=== PATIENT | female | born 1985 | race Caucasian/White ===

== ENCOUNTER → 2019-03-09 | Outpatient (CLI) | payer OTHER, SELFPAY ==
[2019-03-17 16:45] LABS: HPV Reflexed? NOT INDICATED
== END | disposition home or self-care (01) ==
PROVIDERS: Family Provider Family Medicine; PCP Family Medicine; Referring Provider Obstetrics & Gynecology; Visit Provider Obstetrics & Gynecology
DX: Z12.4 Encounter for screening for malignant neoplasm of cervix (principal)
CPT/HCPCS: 88175; G0145

== ENCOUNTER → 2022-02-26 | Outpatient (CLI) | payer OTHER, SELFPAY ==
[2022-03-03 19:27] LABS: HPV Reflexed? NOT INDICATED
== END | disposition home or self-care (01) ==
LOC: LABSPEC 10:14
PROVIDERS: PCP Family Medicine; Visit Provider Obstetrics & Gynecology
DX: Z12.4 Encounter for screening for malignant neoplasm of cervix (principal)
CPT/HCPCS: 88175; G0145

== ENCOUNTER → 2022-12-01 | Outpatient (CLI) | payer OTHER, SELFPAY ==
--- NOTE | 2022-12-01 14:38 | US_ITS ---
STUDY: ULTRASOUND BREAST - LEFT REASON FOR EXAM: Female, 37 years old. Painful swollen breast TECHNIQUE: Axial and longitudinal images of the LEFT breast were performed with a high resolution ultrasound transducer. # OF IMAGES: 29 COMPARISON: None. FINDINGS: LEFT Breast: Sonographic evaluation of the retroareolar region of the left breast shows a complex poorly defined mass measuring 3.3 x 3.2 x 1.8 cm. It is at 5:00 adjacent to the nipple. There is hyperemia around its periphery consistent with an inflammatory process perhaps a poorly defined developing abscess. There is no sonographic evidence of a suspicious shadowing solid lesion, or clustered calcifications [employer] also notes skin thickening and peeling skin. US/Breast Limited Unilateral IMPRESSION: Likely developing abscess adjacent to the nipple with skin thickening and hyperemia. Short-term follow-up sonography is recommended to assure resolution after therapy. No suspicious noncalcified shadowing mass or nodule. ASSESSMENT CATEGORY: BIRADS Category 3: Probably Benign - Short-Interval Follow-up Suggested. A letter regarding these results will be sent to the patient by the facility within 30 days. Electronically Signed: Tristan Peacock MD at 15:50 EDT ,
--- NOTE | 2022-12-01 14:38 | BI_ITS ---
MAMMOGRAPHY - BILATERAL DIAGNOSTIC REASON FOR EXAM: Female, 37 years old. Left breast lump PERTINENT HISTORY: Non-contributory. TECHNIQUE: Digital examination. Mediolateral oblique (MLO) and craniocaudad (CC) views of both breasts were obtained, along with 3-D tomosynthesis. CAD: CAD was performed on this study. COMPARISON: None. Baseline examination. FINDINGS: Breast Composition: The breasts are heterogeneously dense, which may obscure small masses. The right breast is free of suspicious abnormality. The left breast however shows skin thickening, and a retroareolar mass that needs further evaluation with ultrasound. BI/DIAG MAMM W/CAD, BILAT IMPRESSION: Further ultrasonographic evaluation recommended, as described above. Recall Side: Left Breast ASSESSMENT CATEGORY: BIRADS Category 0: Incomplete. Need additional imaging evaluation. A letter regarding these results will be sent to the patient by the facility within 30 days. FOLLOW UP RECOMMENDATION: Ultrasound Recommended. (I) Approximately 10% of breast cancers are not detected by mammography. A normal mammogram should not delay biopsy of a clinically suspicious abnormality. Electronically Signed: Tristan Peacock MD at 15:24 EDT ,
== END | disposition home or self-care (01) ==
PROVIDERS: PCP Family Medicine; Visit Provider Obstetrics & Gynecology
DX: N63.0 Unspecified lump in unspecified breast (principal)
CPT/HCPCS: 76642; 77062; 77066; G0279

== ENCOUNTER → 2022-12-04 | Outpatient (CLI) | payer OTHER, SELFPAY | END | disposition home or self-care (01) | LOC: LABSPEC 09:08 | PROVIDERS: PCP Family Medicine; Visit Provider Surgery | DX: N61.1 Abscess of the breast and nipple (principal) | CPT/HCPCS: 87070; 87075; 87077; 87186; 87205 ==

== ENCOUNTER → 2024-03-25 | Outpatient (CLI) | payer OTHER, SELFPAY ==
--- NOTE | 2024-03-25 09:57 | BI_ITS ---
MAMMOGRAPHY - BILATERAL SCREENING 3-D TOMOSYNTHESIS REASON FOR EXAM: Female, 38 years old. screening mammogram PERTINENT HISTORY: No significant family history. TECHNIQUE: 2-D mammograms and 3-D Tomosynthesis of the breast (s) were performed. CAD was performed. COMPARISON: None. FINDINGS: The breast composition is heterogeneously dense that can obscure small breast masses. Scattered benign calcifications are seen. No dense spiculated masses or suspicious microcalcifications are identified. No architectural distortion is identified. There is no skin thickening or retraction. There has been no significant change since the prior study. BI/SCRN MAMM (CAD)W/ARI BILAT IMPRESSION: No mammographic signs of malignancy. Routine yearly mammograms recommended. ASSESSMENT CATEGORY: BIRADS Category 1: Negative. A letter regarding these results will be sent to the patient by the facility within 30 days. FOLLOW UP RECOMMENDATION: Yearly follow up mammogram recommended. (A) Approximately 10% of breast cancers are not detected by mammography. A normal mammogram should not delay biopsy of a clinically suspicious abnormality. Electronically Signed: Kirk Gill MD at 15:16 EDT ,
== END | disposition home or self-care (01) ==
LOC: OPBI 09:56
PROVIDERS: PCP Family Medicine; Referring Provider Obstetrics & Gynecology; Visit Provider Obstetrics & Gynecology
DX: Z12.31 Encounter for screening mammogram for malignant neoplasm of breast (principal)
CPT/HCPCS: 77063; 77067

== ENCOUNTER → 2025-04-03 | Outpatient (CLI) | payer OTHER, SELFPAY ==
--- NOTE | 2025-04-03 14:45 | BI_ITS ---
EXAM: SCRN MAMM (CAD)W/ARI BILAT DATE: 04/03/2025 CLINICAL HISTORY: F, Age 39 y/o , SCREEN FOR BREAST CANCER No family history. TECHNIQUE: SCRN MAMM (CAD)W/ARI BILAT COMPARISON: Prior exam(s) dated March 25, 2024.. FINDINGS: TISSUE DENSITY: The breasts are heterogeneously dense, which may obscure small masses. Bilateral Breast Mammographic Findings: No significant masses, calcifications or other abnormalities are identified. No suspicious masses, areas of developing architectural distortion, or suspicious calcifications. There has been no significant interval change. BI/SCRN MAMM (CAD)W/ARI BILAT IMPRESSION: Stable examination. OVERALL FINAL ASSESSMENT BI-RADS 1: NEGATIVE. RECOMMENDATION: Routine annual follow-up in 1 Year A letter with findings and recommendations will be mailed to the patient. Reading Location: [place] [id number]
--- OUTSIDE RECORDS SUMMARY | 2025-04-03 22:45 | XMS RPT_ITS | CCD ---
Author Organization [facility] Inform ion Partnership [facility] Care Team Providers Care Ranch Manager Name Role Phone Baltazar Galicia Unavailable Unavailable Sandro Toledo Unavailable Unavailable [place] RN, Cari Car Unavailable Unavailable Baltazar Galicia Unavailable Unavailable Dr. Andres Neil Primary Care Provider [phone] Dr. Arnav Mir Attending Provider [phone] Dr. Slim Payne Referring Provider [phone] Andres Neil Referring Provider Nurse, Surgery Attending Provider Unavailable Cheyenne Combs Attending Unavailable Andres Neil Referring Unavailable Andres Neil Primary Care Unavailable Andres Neil Primary Care Unavailable Cheyenne Combs Referring Unavailable Cheyenne Combs Attending Unavailable Medications Current Medications Medication Drug Class(es) Dates Sig (Normalized) Sig (Original) amoxicillin 875 mg / clavulanate 125 mg oral tablet (2 sources) Penicillin-class Antibacterial Start: 12-04-2022 take 1 tablet by mouth twice daily Amoxicillin-Pot Clavulanate Active 1 TABLET PO TWICE A DAY December 04, 2022 12:00am Multivitamin preparation (3 sources) Start: 04-01-2018 take 1 tablet by mouth once daily Multivitamin Active 1 TABLET PO daily April 01, 2018 4:45pm Start: 04-01-2018 take 1 tablet by adriano once daily Multivitamin Active 1 TABLET PO daily April 01, 2018 12:00am Vitamin B Complex (B Complex 1) tablet (3 sources) Start: 04-01-2018 take 1 tablet by mouth once daily Vitamin B Complex (B Complex 1) tablet Active 1 TABLET PO daily April 01, 2018 4:45pm Start: 04-01-2018 take 1 tablet by mouth once da gerber Vitamin B Complex (B Complex 1) tablet Active 1 TABLET PO daily April 01, 2018 12:00am Completed/Discontinued Medications Medication Drug Class(es) Dates Sig (Normalized) Sig (Original) acetaminophen 325 mg / oxyCODONE hydrochloride 5 mg oral tablet (3 sources) Opioid Agonist Start: 01-05-2015 End: 04-01-2018 take 1 tablet by mouth every four hours as needed Oxycodone-Acetamino phen Discontinued 1 - 2 TABLET PO EVERY 4 HOURS NEEDED 30 January 05, 2015 12:00am April 01, 2018 4:44pm ferrous gluconate (3 sources) Start: 01-05-2015 End: 04-01-2018 take 1 tablet by mouth once daily Ferrous Gluconate Discontinued 1 TABLET PO DAILY January 05, 2015 3:04pm April 01, 2018 4:45pm Start: 01-05-2015 End: 04-01-2018 take 1 tablet by mouth once daily Ferrous Gluconate Discontinued 1 TABLET PO DAILY January 05, 2015 12:00am April 01, 2018 4:45pm ibuprofen 800 mg oral tablet (3 sources) Nonsteroidal Anti-inflammatory Drug Start: 01-05-2015 End: 04-01-2018 take 800 mg by mouth three times daily as needed Ibuprofen Discontinued 800 MG PO 3 TIMES DAILY NEEDED 60 January 05, 2015 12:00am April 01, 2018 4:44pm MULTIPLE VITAMIN (2 sources) Start: 04-13-2017 take 1 tablet by mouth once daily MULTIVITAMINS TABS One tablet by mouth daily MULTIPLE VITAMIN Andres Lee MD Vit,Oyla11-Zzbf -Folic (3 sources) Start: 01-05-2015 End: 04-01-2018 take 1 tablet by mouth once daily Vit,Pugf40-Eumy-Vjr ic Discontinued 1 TABLET PO DAILY January 05, 2015 7:45am April 01, 2018 4:45pm Start: 01-05-2015 End: 04-01-2018 take 1 tablet by mouth once daily Vit,Lgkf11-Ofua-Rssdp Discontinued 1 TABLET PO DAILY January 05, 2015 12:00am April 01, 2018 4:45pm B COMPLEX VITAMINS (2 sources) Start: 04-13-2017 take 1 tablet by mouth once daily VITAMIN B COMPLEX TABS One tablet by mouth daily B COMPLEX VITAMINS [id number] Andres Lee MD Problems Active Problems Problem Classification Problem Date Documented Da te Episodic/Chronic Cardiac dysrhythmias (13 sources) Bradycardia, unspecified; Translations: [Conduction disorder of the heart] Onset: 12-27-2015 04-09-2017 Chronic Cardiac dysrhythmias (3 sources) Bradycardia; Translations: [Bradycardia, unspecified] 04-01-2018 Episodic Conduction disorders (1 source) Conduction disorder of the heart; Translations: [Cardiac arrhythmia, unspecified] Onset: 12-27-2015 12-27-2015 Chronic Nonmalignant breast conditions (5 sources) Abscess of breast; Translations: [Abscess of the breast and nipple] 12-04-2022 Episodic Nonspecific chest pain (6 sources) Chest pain; Translations: [Chest pain, unspecified] Onset: 12-27-2015 12-27-2015 Episodic Other screening for suspected conditions (not mental disorders or infectious disease) (1 source) Encounter for screening mammogram for malignant neoplasm of breast; Translations: [Encounter for screening mammogram for malignant neoplasm of breast] Onset: 03-31-2025 Episodic Past or Other Problems Problem Classification Problem Date Documented Date Episodic/Chronic Other circulatory disease (4 sources) Electrocardiogram abnormal; Translations: [Abnormal electrocardiogram [ECG] [EKG]] Onset: 12-27-2015 12-27-2015 Episodic Results Test Name Value Interpretation Reference Range Facility Anaerobic cultureOrdered By: Dr. Mir on 12-09-2022 Bacteria identified Anaer cx Nom (Unsp spec) No anaerobic bacteria isolated. [facility] Bacteria identified Cx Nom ( Wound)Ordered By: Dr. Mir on 12-06-2022 Wound Culture Staphylococcus aureus [facility] Gram stain for investigation of transfusion reactionOrdered By: Dr. Mir on 12-04-2022 Microscopic observation Gram stain Nom (Unsp spec) [facility] CNOVon 11-14-2018 CNOV Office Visit ([facility]) ---- SARAH DINH ([id number]) 1985 F Date Time Provider Department 11/14/18 10:15 AM CAITLYN BIRMINGHAM (FERMIN) [facility] During your visit today, we recorded the following information about you: Temperature Pulse Respiration Blood pressure 99.7 degrees 93/minute 14/minute 110/80 Weight 56.7 kg Caitlyn Birmingham APRN.CNP 11/14/2018 10:22 AM Signed Subjective The history is provided by the patient. No handbag stitcher was used. LORENZO Dinh is a 32 year old female who presents today for CC of cough, fever, and sinus pressure. This started 5 days ago. She can hear wheezing at night. She does not have asthma, but has used an inhaler in the past with symptoms like this and it has helped. She has tried OTC cough and cold medications tylenol and ibuprofen with slight relief. 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 I have confirmed and edited as necessary, the [facility] Review of Systems Constitutional: Positive for fever. Negative for chills. HENT: Positive for congestion and sinus pain. Negative for ear pain and sore throat. Respiratory: Positive for cough. Musculoskeletal: Positive for myalgias. Neurological: Positive for headaches (sinus). Objective Physical Exam Constitutional: She is well-developed, well-nourished, and in no distress. HENT: Head: Normocephalic and atraumatic. Right Ear: Tympanic membrane, external ear and ear canal normal. Left Ear: Tympanic membrane and ear canal normal. Nose: Mucosal edema and rhinorrhea present. Right sinus exhibits maxillary sinus tenderness and frontal sinus tenderness. Left sinus exhibits maxillary sinus tenderness and frontal sinus tenderness. Mouth/Throat: Uvula is midline and mucous membranes are normal. Posterior oropharyngeal erythema (mild) present. Thick Clear Post Nasal Drainage Pulmonary/Chest: Breath sounds normal. She has no decreased breath sounds. She has no wheezes. She has no rhonchi. She has no rales. Thin Clear Post Nasal Drainage Lymphadenopathy: Head (right side): No submental, no submandibular and no tonsillar adenopathy present. Head (left side): No submental, no submandibular and no tonsillar adenopathy present. She has no cervical adenopathy. Neurological: She is alert. Skin: Skin is warm and dry. Psychiatric: Affect normal. Nursing note and vitals reviewed. ASSESSMENT/PLAN: 1. Flu-like symptoms - ICD9: 780.99, ICD10: R68.89 (primary diagnosis) Rest, increase water intake Motrin or Tylenol as needed for fever or pain. Salt water gargles, chloraseptic spray or lozenges as needed for sore throat. Warm beverages, honey. Nasal saline spray as needed Cool mist humidifier at night Flonase or Nasonex 1 spray each nostril two times a day. Tylenol (generic acetaminophen) 500 mg-2 tabs every 8 hrs. as needed for fever and aches Ibuprofen 600 mg (3-200mg tablets) every 6 hours DO NOT take any other OTC cough or cold medication while taking the prescription Bromfed DM. It is ok to take an OTC pain reliever/fever pleat patternmaker though such as advil or tylenol as needed. 2. Fever, unspecified fever cause - ICD9: 780.60, ICD10: R50.9 Tylenol and ibuprofen as needed Diagnosis and treatment plan were discussed and questions were answered to the patient's satisfaction. Pt acknowledged understanding of concepts and follow up plan. Specific signs and symptoms that would indicate the need for higher level of care were discussed in detail warranting prompt ER evaluation. Caitlyn Birmingham APRN.FERMIN Birmingham APRN.FERMIN 11/14/2018 10:18 AM Signed ASSESSMENT/PLAN: 1. Flu-like symptoms - ICD9: 780.99, ICD10: R68.89 (primary diagnosis) Rest, increase water intake Motrin or Tylenol as needed for fever or pain. Salt water gargles, chloraseptic spray or lozenges as needed for sore throat. Warm beverages, honey. Nasal saline spray as needed Cool mist humidifier at night Flonase or Nasonex 1 spray each nostril two times a day. Tylenol (generic acetaminophen) 500 mg-2 tabs every 8 hrs. as needed for fever and aches Ibuprofen 600 mg (3-200mg tablets) every 6 hours DO NOT take any other OTC cough or cold medication while taking the prescription Bromfed DM. It is ok to take an OTC pain reliever/fever pleat patternmaker though such as advil or tylenol as needed. 2. Fever, unspecified fever cause - ICD9: 780.60, ICD10: R50.9 Tylenol and ibuprofen as needed Referring Provider: SELF [200] Allergies As of Date: 11/14/2018 (No Known Allergies) Date Reviewed: 11/14/2018 Reviewed by: [facility]) [place] - Fully Assessed Reason for Visit: Cough [28] Fever [47] Sinus Problem [99] Primary Visit Diagnosis:Flu-like symptoms [R68.89] Other Visit Diagnosis:Fever, unspecified fever cause [R50.9] Order(s):albuterol HFA (PROAIR HFA) 90 mcg/actuation inhalerInhale 2 Puffs as instructed every 4 hours as needed.Disp: 1 InhalerRfl: 0 Brompheniramine-Pse udoeph-DM (BROMFED DM) 2-30-10 mg/5 mL syrupTake 5-10 ml po q6h prnDisp: 120 mLRfl: 0 Prescriptions as of 11/14/2018 Sig: ALBUTEROL SULFATE HFA 90 MCG/* Inhale 2 Puffs as instructed * BROMPHENIRAMINE-PSE UDOEPHEDRI* Take 5-10 ml po q6h prn Problem List As Of Date: 11/14/2018 (None) Other instructions from your clinician: ASSESSMENT/PLAN: 1. Flu-like symptoms - ICD9: 780.99, ICD10: R68.89 (primary diagnosis) Rest, increase water intake Motrin or Tylenol as needed for fever or pain. Salt water gargles, chloraseptic spray or lozenges as needed for sore throat. Warm beverages, honey. Nasal saline spray as needed Cool mist humidifier at night Flonase or Nasonex 1 spray each nostril two times a day. Tylenol (generic acetaminophen) 500 mg-2 tabs every 8 hrs. as needed for fever and aches Ibuprofen 600 mg (3-200mg tablets) every 6 hours DO NOT take any other OTC cough or cold medication while taking the prescription Bromfed DM. It is ok to take an OTC pain reliever/fever pleat patternmaker though such as advil or tylenol as needed. 2. Fever, unspecified fever cause - ICD9: 780.60, ICD10: R50.9 Tylenol and ibuprofen as needed Prescriptions ordered this encounter Disp Refills Start End ALBUTEROL SULFATE HFA 90 MCG/ACTUATI* 1 In* 0 11/14/2018 Route: INHALATION Sig: Inhale 2 Puffs as instructed every 4 hours as needed. BROMPHENIRAMINE-PSE UDOEPHEDRINE-DM 2* 120 * 0 11/14/2018 Sig: Take 5-10 ml po q6h prn Encounter Status:Closed by CAITLYN BIRMINGHAM CNP on 11/14/18 Normal [facility] PROGRESSon 11-14-2018 Protein mass conc HNO ID: [id number] Author: Caitlyn Ornelas) [place] Service: (none) Author Type: Nurse Practitioner Type: Progress Notes Filed: 11/14/2018 10:22 AM Note Text: Subjective The history is provided by the patient. No handbag stitcher was used. LORENZO Dinh is a 32 year old female who presents today for CC of cough, fever, and sinus pressure. This started 5 days ago. She can hear wheezing at night. She does not have asthma, but has used an inhaler in the past with symptoms like this and it has helped. She has tried OTC cough and cold medications tylenol and ibuprofen with slight relief. 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 I have confirmed and edited as necessary, the [facility] Review of Systems Constitutional: Positive for fever. Negative for chills. HENT: Positive for congestion and sinus pain. Negative for ear pain and sore throat. Respiratory: Positive for cough. Musculoskeletal: Positive for myalgias. Neurological: Positive for headaches (sinus). Objective Physical Exam Constitutional: She is well-developed, well-nourished, and in no distress. HENT: Head: Normocephalic and atraumatic. Right Ear: Tympanic membrane, external ear and ear canal normal. Left Ear: Tympanic membrane and ear canal normal. Nose: Mucosal edema and rhinorrhea present. Right sinus exhibits maxillary sinus tenderness and frontal sinus tenderness. Left sinus exhibits maxillary sinus tenderness and frontal sinus tenderness. Mouth/Throat: Uvula is midline and mucous membranes are normal. Posterior oropharyngeal erythema (mild) present. Thick Clear Post Nasal Drainage Pulmonary/Chest: Breath sounds normal. She has no decreased breath sounds. She has no wheezes. She has no rhonchi. She has no rales. Thin Clear Post Nasal Drainage Lymphadenopathy: Head (right side): No submental, no submandibular and no tonsillar adenopathy present. Head (left side): No submental, no submandibular and no tonsillar adenopathy present. She has no cervical adenopathy. Neurological: She is alert. Skin: Skin is warm and dry. Psychiatric: Affect normal. Nursing note and vitals reviewed. ASSESSMENT/PLAN: 1. Flu-like symptoms - ICD9: 780.99, ICD10: R68.89 (primary diagnosis) Rest, increase water intake Motrin or Tylenol as needed for fever or pain. Salt water gargles, chloraseptic spray or lozenges as needed for sore throat. Warm beverages, honey. Nasal saline spray as needed Cool mist humidifier at night Flonase or Nasonex 1 spray each nostril two times a day. Tylenol (generic acetaminophen) 500 mg-2 tabs every 8 hrs. as needed for fever and aches Ibuprofen 600 mg (3-200mg tablets) every 6 hours DO NOT take any other OTC cough or cold medication while taking the prescription Bromfed DM. It is ok to take an OTC pain reliever/fever pleat patternmaker though such as advil or tylenol as needed. 2. Fever, unspecified fever cause - ICD9: 780.60, ICD10: R50.9 Tylenol and ibuprofen as needed Diagnosis and treatment plan were discussed and questions were answered to the patient's satisfaction. Pt acknowledged understanding of concepts and follow up plan. Specific signs and symptoms that would indicate the need for higher level of care were discussed in detail warranting prompt ER evaluation. Caitlyn Birmingham APRN.PLUG PASTER Normal [facility] CNOVon 06-17-2018 CNOV Office Visit ([facility]) ---- NEMESIOAdamSARAH ([id number]) 1985 F Date Time Provider Department 06/17/18 12:00 PM KAR ERNANDEZ [facility] During your visit today, we recorded the following information about you: Temperature Pulse Respiration Blood pressure 98.3 degrees 51/minute 14/minute 120/80 Weight 56.2 kg Kar Ernandez MD 06/17/2018 12:14 PM Signed Patient presents with: Eye Problem: x3 day HPI: Feeling left eye redness and discharge for 3 days. Positive symptoms: contact lens use, rhinorrhea, Negative symptoms: Cough, Sorethroat, Fever, eye pain, vision change beyond expected without contact lens OTC: warm compress MEDICATIONS: No current outpatient prescriptions on file. No current facility-administer ed medications for this visit. ALLERGIES: ALLERGIES No Known Allergies VITALS: BP 120/80 Pulse (!) 51 Temp 36.8 ?C (98.3 ?F) (Left Tympanic) Resp 14 Wt 56.2 kg (124 lb) SpO2 98% ? No PHYSICAL EXAM: GEN: Pleasant, in no acute distress. HEENT: PERRL, EOMI, left conjunctival injection, right conjunctiva clear Throat: moist mucous membranes, no erythema, no exudate Neck: supple, no thyromegaly, no lymphadenopathy HEART: regular rate and rhythm, no murmurs LUNGS: clear to auscultation, no wheezes or crackles, no increased WOB ASSESSMENT/PLAN: 1. Acute conjunctivitis of left eye, unspecified acute conjunctivitis type - ICD9: 372.00, ICD10: H10.32 [place] eye discussed. Infectious conjunctivitis is most commonly caused by cold viruses and is a self-limited condition which usually resolves in about a week. Bacterial conjunctivitis usually follows a similar course, but symptoms and contagiousness are responsive to antibiotics. Bacterial infection can rarely progress to more serious infection. Hand hygiene with washing or animal rides manager is important to reduce spread of the infection. Seek re-evaluation for high fever, increasing periocular redness/swelling, eye pain, or vision change as these can be symptoms of serious infection. - OFLOXACIN 0.3 % EYE DROPS Kar Ernandez MD Referring Provider: SELF [200] Allergies As of Date: 06/17/2018 (No Known Allergies) Date Reviewed: 06/17/2018 Reviewed by: Michelle Vincent Ma - Fully Assessed Reason for Visit: Eye Problem [43] Cmt: x3 day Primary Visit Diagnosis:Acute conjunctivitis of left eye, unspecified acute conjunctivitis type [H10.32] Order(s):ofloxacin (OCUFLOX) 0.3 % ophthalmic solutionUse 2 Drops in the left eye every 4 hours for 7 days.Disp: 1 BottleRfl: 0 Prescriptions as of 06/17/2018 Sig: OFLOXACIN 0.3 % EYE DROPS Use 2 Drops in the left eye e* Problem List As Of Date: 06/17/2018 (None) Prescriptions ordered this encounter Disp Refills Start End OFLOXACIN 0.3 % EYE DROPS 1 Donte* 0 06/17/2018 06/24/2018 Route: LEFT EYE Sig: Use 2 Drops in the left eye every 4 hours for 7 days. Letter Text [place] [facility] [address] [place] [phone] 06/17/2018 TO WHOM IT MAY CONCERN: This is to confirm that Sarah Dinh had an appointment and was seen at the [facility] in the Department of Urgent Care by Kar Ernandez MD on 06/17/2018 and may return to work on 06/19/2018. Sincerely , Kar Ernandez MD Encounter Status:Closed by KAR ERNANDEZ MD on 06/17/18 Normal [facility] PROGRESSon 06-17-2018 Protein mass conc HNO ID: [id number] Author: Kar Ernandez Service: (none) Author Type: Physician Type: Progress Notes Filed: 06/17/2018 12:14 PM Note Text: Patient presents with: Eye Problem: x3 day HPI: Feeling left eye redness and discharge for 3 days. Positive symptoms: contact lens use, rhinorrhea, Negative symptoms: Cough, Sorethroat, Fever, eye pain, vision change beyond expected without contact lens OTC: warm compress MEDICATIONS: No current outpatient prescriptions on file. No current facility-administer ed medications for this visit. ALLERGIES: ALLERGIES No Known Allergies VITALS: BP 120/80 Pulse (!) 51 Temp 36.8 ?C (98.3 ?F) (Left Tympanic) Resp 14 Wt 56.2 kg (124 lb) SpO2 98% ? No PHYSICAL EXAM: GEN: Pleasant, in no acute distress. HEENT: PERRL, EOMI, left conjunctival injection, right conjunctiva clear Throat: moist mucous membranes, no erythema, no exudate Neck: supple, no thyromegaly, no lymphadenopathy HEART: regular rate and rhythm, no murmurs LUNGS: clear to auscultation, no wheezes or crackles, no increased WOB ASSESSMENT/PLAN: 1. Acute conjunctivitis of left eye, unspecified acute conjunctivitis type - ICD9: 372.00, ICD10: H10.32 [place] eye discussed. Infectious conjunctivitis is most commonly caused by cold viruses and is a self-limited condition which usually resolves in about a week. Bacterial conjunctivitis usually follows a similar course, but symptoms and contagiousness are responsive to antibiotics. Bacterial infection can rarely progress to more serious infection. Hand hygiene with washing or animal rides manager is important to reduce spread of the infection. Seek re-evaluation for high fever, increasing periocular redness/swelling, eye pain, or vision change as these can be symptoms of serious infection. - OFLOXACIN 0.3 % EYE DROPS Kar Ernandez MD [facility] PROGRESSon 11-17-2017 Protein mass conc HNO ID: [id number] Author: Kar Ernandez Service: (none) Author Type: Physician Type: Progress Notes Filed: 11/17/2017 8:19 AM Note Text: Patient presents with: Eye Problem: red and matting x this am, does wear contacts HPI: Right eye irritation since yesterday. Positive symptoms: Cough off and on for 2 weeks, AM discharge Negative symptoms: Sorethroat, Fever, vision change, eye pain, OTC: wears contact lenses Works as a school counselor. MEDICATIONS: No current outpatient prescriptions on file. No current facility-administer ed medications for this visit. ALLERGIES: ALLERGIES No Known Allergies VITALS: BP 110/66 Pulse 68 Temp 36.4 ?C (97.6 ?F) (Tympanic) Resp 16 Wt 57.6 kg (127 lb) LMP 11/01/2017 ? Unknown PHYSICAL EXAM: GEN: Pleasant, in no acute distress. HEENT: PERRL, EOMI, moderate right conjunctival injection, left conjunctiva clear Ears: canals clear, TMs without erythema, bulge, or effusion Sinuses: non-tender frontal sinus, non-tender maxillary sinuses Throat: moist mucous membranes, no erythema, no exudate Neck: supple, no thyromegaly, no lymphadenopathy HEART: regular rate and rhythm, no murmurs LUNGS: clear to auscultation, no wheezes or crackles, no increased WOB ASSESSMENT/PLAN: 1. Acute conjunctivitis of right eye, unspecified acute conjunctivitis type - ICD9: 372.00, ICD10: H10.31 [place] eye discussed. Infectious conjunctivitis is most commonly caused by cold viruses and is a self-limited condition which usually resolves in about a week. Bacterial conjunctivitis usually follows a similar course, but symptoms and contagiousness are responsive to antibiotics. Bacterial infection can rarely progress to more serious infection. Hand hygiene with washing or animal rides manager is important to reduce spread of the infection. Discard current contacts and supplies. Seek re-evaluation for high fever, increasing periocular redness/swelling, eye pain, or vision change as these can be symptoms of serious infection. 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 Left ventricular Ejection fraction 60 % Invalid Interpretation Code [employer] Work Phone: Office Visit: [facility] 02-14-20 16 Documentation of current medications (procedure) T Invalid Interpretation Code [employer] Work Phone: Documentation of current medications (procedure) Done Invalid Interpretation Code [employer] Work Phone: EKG Report: [facility] ECG Obse rvationson 12-27-2015 EKG QRS axis 28 deg [place] [employer] Work Phone: [phone] electrocardiogram interpretation Undetermined Bradycardia -Short [place] syndrome Mariela = 92BORDERLINE RHYTHM Invalid Interpretation Code [facility] [employer] Work Phone: [phone] GE use only - for [employer] import when terms are not otherwise specified 421 ms Invalid Interpretation Code [facility] Work Phone: [phone] Interpretation Undetermined Bradycardia -Short [place] syndrome Mariela = 92BORDERLINE RHYTHM [facility] Work Phone: [phone] P [place] -39 deg [facility] Work Phone: [phone] P wave axis, electrocardiogram -39 deg Invalid Interpretation Code [facility] Work Phone: [phone] [place] Interval 92 ms [facility] Work Phone: [phone] [place] interval, electrocardiogram 92 ms Invalid Interpretation Code [facility] Work Phone: [phone] Pulse (Heart Rate) 58 /min Invalid Interpretation Code [facility] Work Phone: [phone] QRS axis, electrocardiogram 28 deg Invalid Interpretation Code [facility] Work Phone: [phone] QRS Duration 94 ms [employer] Work Phone: [phone] QRS duration, electrocardiogram 94 ms Invalid Interpretation Code [facility] Work Phone: [phone] QT Interval new path ms [facility] Work Phone: [phone] QT interval, electrocardiogram new path ms Invalid Interpretation Code [facility] Work Phone: [phone] QTc Shaikh 421 ms [facility] Work Phone: [phone] T [place] -1 deg [facility] Work Phone: [phone] T wave axis, electrocardiogram -1 deg Invalid Interpretation Code [facility] Work Phone: [phone] Office Visiton 12-27-2015 Tobacco smoking status NHIS Never smoker [facility] Work Phone: [phone] Tobacco use CPHS Never smoker Invalid Interpretation Code [facility] Work Phone: [phone] Clinical Lists Update: [employer] 03-24-2016 Cholesterol 146 mg/dL Invalid Interpretation Code [facility] Work Phone: [phone] HDL Cholesterol 55 mg/dL Invalid Interpretation Code [facility] Work Phone: [phone] LDL Cholesterol 79 mg/dL Invalid Interpretation Code [facility] Work Phone: [phone] Triglyceride 63 mg/dL Invalid Interpretation Code [facility] Work Phone: [phone] Vital Signs Date Time Vital Sign Value Performing Clinician Dyan haq 12-04-2022 07:51-0400 Body height 162.[address] Andres Neil Work Phone: [facility] 12-04-2022 07:51-0400 Body mass index (BMI) [Ratio] 26.1 kg/m2 Dr. Andres Neil Work Phone: [facility] 12-04-2022 07:51-0400 Body temperature 97.6 [degF] Dr. Andres Neil Work Phone: [facility] 12-04-2022 07:51-0400 Body weight 69.[address] Andres Neil Work Phone: [facility] 12-04-2022 07:51-0400 Diastolic blood pressure 83 mm[Hg] Dr. Andres Neil Work Phone: [facility] 12-04-2022 07:51-0400 Heart rate 67 /min Dr. Andres Neil Work Phone: [facility] 12-04-2022 07:51-0400 Respiratory rate 18 /min Dr. Andres Neil Work Phone: [facility] 12-04-2022 07:51-0400 SaO2% (BldA) [Mass fraction] 100 % Dr. Andres Neil Work Phone: [facility] 12-04-2022 07:51-0400 Systolic blood pressure 140 mm[Hg] Dr. Andres Neil Work Phone: [facility] 04-13-2017 14:49-0400 BMI (Body Mass Index) 22.31 kg/m2 Baltazar Galicia [facility] Work Phone: 04-13-2017 14:49-0400 BP Diastolic 58 mm[Hg] [facility] Work Phone: 04-13-2017 14:49-0400 BP Systolic 110 mm[Hg] [facility] Work Phone: 04-13-2017 14:49-0400 Height 162.56 cm [facility] Work Phone: 04-13-2017 14:49-0400 Pulse (Heart Rate) 56 /min [facility] Work Phone: 04-13-2017 14:49-0400 Respiratory Rate 18 /min [facility] Work Phone: 04-13-2017 14:49-0400 Weight 58.97 kg [facility] Work Phone: 02-14-2016 15:08-0400 BMI (Body Mass Index) 22.38 kg/m2 Cari Elaine RN [facility] Work Phone: 02-14-2016 15:08-0400 BP Diastolic 66 mm[Hg] Cari Elaine RN [facility] Work Phone: 02-14-2016 15:08-0400 BP Systolic 94 mm[Hg] Cari Elaine RN [facility] Work Phone: 02-14-2016 15:08-0400 BSA (Body Surface Area) 1.63 m2 Cari Elaine RN [facility] Work Phone: 02-14-2016 15:08-0400 Pulse (Heart Rate) 64 /min Cari Elaine RN [facility] Work Phone: 02-14-2016 15:08-0400 Respiratory Rate 16 /min Cari Elaine RN [facility] Work Phone: 02-14-2016 15:08-0400 Weight 59.15 kg Cari Elaine RN [facility] Work Phone: 12-27-2015 14:43-0400 Heart rate 58 /min Baltazar Galicia [facility] Work Phone: 12-27-2015 14:26-0400 Height 162.56 cm Cari Elaine RN [facility] Work Phone: Encounters Encounter Date Encounter Type Care Provider Facility Start: 04-05-2025 ambulatory Cheyenne Combs Facility :[facility] Start: 04-03-2025 ambulatory Andres Neil Facility:[facility] Start: 12-08-2022 End: 12-08-[address] Andres Neil Work Phone: [facility] Start: 12-05-2022 End: 12-05-[address] Andres Neil Work Phone: [facility] Start: 12-04-2022 End: 12-04-[address] Andres Neil Work Phone: [facility] Work Phone: Start: 12-04-2022 End: 12-04-[address] Andres Neil Work Phone: [facility] Spec[facility] Start: 12-04-2022 End: 12-04-[address] Andres Neil Work Phone: [facility] Start: 12-01-2022 End: 12-01-[address] Andres Neil Work Phone: [facility] Work Phone: Start: 12-01-2022 End: 12-01-[address] Andres Neil Work Phone: [facility] Start: 02-26-2022 End: 02-26-2022 Patient encounter procedure [facility] Start: 11-14-2018 End: 11-16-2018 Patient encounter procedure [facility] Start: 06-17-2018 End: 06-17-2018 Patient encounter procedure [facility] Start: 11-17-2017 End: 11-20-2017 Patient encounter procedure [facility] Procedures Date Procedure Procedure Detail Performing Clinician Start: 12-01-2022 Bilateral mammography Elmo Neil Work Phone: Start: 12-01-[address] Andres Neil Work Phone: Start: 04-13-2017 End: 04-13-2017 Follow Up Appt 1 year Andres Borrego Start: 04-13-2017 End: 04-13-2017 PFM Andres Lee MD Start: 02-14-2016 End: 03-31-2017 Follow Up Appt 1 year Marietta story PA-C Work Phone: Start: 02-14-2016 End: 03-31-2017 PFM Marietta Sepulveda PA-C Work Phone: Start: 01-14-2016 End: 01-30-2016 Nuclear stress test -exercise Andres trejo MD Start: 12-27-2015 End: 01-30-2016 Echocardiography Andres Lee MD Start: 12-27-2015 End: 12-27-2015 Electrocardiogram, complete Andres acevedo MD Start: 12-27-2015 End: 12-27-2015 Follow Up Appt 6 weeks Andres Lee MD Start: 12-27-2015 End: 01-30-2016 Follow Up Appt Other Andres Lee MD Start: 12-27-2015 End: 12-27-2015 MMM Andres Lee MD Anaerobic microbial culture Dr. Andres Neil Work Phone: Investigation of tra nsfusion reaction Dr. Andres Neil Work Phone: Microbial culture, routine D r. Andres Neil Work Phone: Plan of Treatment Date Care Activity Detail Author Start: 12-04-2022 [facility] Start: 04-12-2018 End: 04-12-2018 Appointment Appointment [facility] Work Phone: Start: 04-13-2017 End: 04-13-2017 Appointment Appointment [facility] Work Phone: Start: 04-13-2017 End: 04-13-2017 Follow Up Appt 1 year Follow Up Appt 1 year [facility] Work Phone: Start: 04-13-2017 End: 04-13-2017 PFM PFM [facility] Work Phone: Start: 02-14-2016 End: 03-31-2017 Follow Up Appt 1 year Follow Up Appt 1 year [facility] Work Phone: Start: 02-14-2016 End: 03-31-2017 PFM PFM [facility] Work Phone: Start: 01-14-2016 End: 01-14-2016 Nuclear stress test -exercise Nuclear stress test -exercise [facility] Work Phone: Start: 12-27-2015 End: 12-27-2015 Echocardiography Echocardiogram (complete) [facility] Work Phone: Start: 12-27-2015 End: 12-27-2015 Electrocardiogram, complete EKG (In office) [facility] Work Phone: Start: 12-27-2015 End: 12-27-2015 Follow Up Appt 6 weeks Follow Up Appt 6 weeks [facility] Work Phone: Start: 12-27-2015 End: 01-30-2016 Follow Up Appt Other Follow Up Appt Other [facility] Work Phone: Start: 12-27-2015 End: 12-27-2015 MMM MMM [facility] Work Phone: [facility]erobic [facility] B[facility] identified in Unspecified specimen by Anaerobe culture [facility] Immunizations Immunization Date Immunization Notes Care Provider Kelechi bishop 07-05-2014 Influenza virus vaccine [facility] Payers Date Payer Category Payer Self-pay [id number] 2015 Unknown [id number] Unknown [id number] Unknown [id number] Social History Date Type Detail Facility Start: 12-16-2021 End: 12-08-2022 Tobacco smoking status MDIS Unknown if ever smoked [facility] Start: 1985 Sex Assigned At Female [facility] Evaluation note Note Date & Type Note Facility Evaluation note No assessment information availa ble [facility] Work Phone: Evaluation note Note Date & Type Note Facility Evaluation note Diagnosis Onset Date Breast abscess acute [facility] Work Phone: Evaluation note Note Date & Type Note Facility Evaluation note Diagnosis Onset Date Breast abscess acute Breast abscess acute [facility] Work Phone: Summary Purpose Family History No Family History Records Found Relationship Condition Age at Onset Recorded Date/T jamee grandfather Coronary artery disease Unknown grandmother Coronary artery disease Unknown mother Coronary artery disease Unknown Relationship Condition Age at Onset Recorded Date/T jamee grandfather Coronary artery disease Unknown Malignant neoplasm Unknown grandmother Coronary artery disease Unknown Malignant neoplasm of breast Unknown mother Coronary artery disease Unknown grandmother Malignant neoplasm of colon Unknown Advance Directives No Advanced Directives Records FoundNo Advanced Directives Records Found Chief Complaint and Reason for Visit Chief Complaint LEFT BREAST LUMP] Birads 3 L Breast/Infected WOUND CHECK Reason for Visit Breast abscess Chief Complaint LEFT BREAST LUMP] Birads 3 L Breast/Infected WOUND CHECK WOUND CHECK Reason for Visit Breast abscess Breast abscess Additional Source Comments INFORMATION SOURCE (unrecogn ized section and content) DATE CREATED AUTHOR 11/16/2018 [facility] DATE CREATED AUTHOR AUTHOR'S ORGANIZ ATION 04/01/2025 [facility] Goals (unrecognized section and content) Goals may be documented in a n alternate sectionGoals may be documented in an alternate sectionGoals may be documented in an alternate section Care Teams (unrecognized sec tion and content) Team Status: Active Member Role Status Dates Dr. Magen Payne MD Family Provider Active Dr. Andres Neil MD Primary Care Provider Active Team Status: Inactive Member Role Status Dates Dr. Andres Neil MD Primary Care Provider Active Dr. Arnav Mir MD Attending Provider Active Dr. Slim Payne MD Referring Provider Active Team Status: Inactive Member Role Status Dates Dr. Andres Neil MD Primary Care Provider, Referring Provider Active Surgery Nurse Attending Provider Active Team Status: Inactive Member Role Status Dates Dr. Andres Neil MD Primary Care Provider Active Dr. Slim Payne MD Attending Provider Active Team Status: Active Member Role Status Dates Dr. Andres Neil MD Primary Care Provider Active Dr. Arnav Mir MD Attending Provider Active Team Status: Inactive Member Role Status Dates Dr. Andres Neil MD Primary Care Provider, Referring Provider Active Dr. Arnav Mir MD Attending Provider Active Team Status: Inactive Member Role Status Dates Dr. Andres Neil MD Primary Care Provider Active Dr. Arnav Mir MD Attending Provider Active FOR RECORDS PERTAINING TO PATIENTS WHO ARE OR HAVE BEEN ENROLLED IN A CHEMICAL DEPENDENCY/SUBSTANCEABUSE PROGRAM, SOME INFORMATION MAY BE OMITTED. This clinical summary was aggregated from multiple sources. Caution should be exercised in using it in the provision of clinical care. This summary normalizes information from multiple sources, and as a consequence, information in this document may materially change the coding, format and clinical context of patient data. In addition, data may be omitted in some cases. CLINICAL DECISIONS SHOULD BE BASED ON THE PRIMARY CLINICAL RECORDS. [employer] provides no warranty or guarantee of the accuracy or completeness of information in this document.
== END | disposition home or self-care (01) ==
LOC: OPBI 14:41
PROVIDERS: PCP Family Medicine; Referring Provider Nurse Practitioner Family; Visit Provider Nurse Practitioner Family
DX: Z12.31 Encounter for screening mammogram for malignant neoplasm of breast (principal)
CPT/HCPCS: 77063; 77067

== ENCOUNTER → 2025-04-27 | Outpatient (CLI) | payer OTHER, SELFPAY ==
[2025-04-30 10:08] LABS: HPV APTIMA, High Risk Negative (Negative)
== END | disposition home or self-care (01) ==
LOC: LABSPEC 11:47
PROVIDERS: PCP Family Medicine; Referring Provider Nurse Practitioner Family; Visit Provider Nurse Practitioner Family
DX: Z12.4 Encounter for screening for malignant neoplasm of cervix (principal); N90.89 Other specified noninflammatory disorders of vulva and perineum
CPT/HCPCS: 87070; 87205; 87624; 88175; G0145